=== PATIENT | male | born 1990 | race Caucasian/White ===

== ENCOUNTER 2018-01-13 18:15 | Inpatient (IN) | payer OTHER ==
[~2018-01-13] VITALS: Ht 172.7 cm; Wt 81.4 kg
[~2018-01-13 18:15] MED LIST: DOXYCYCLINE HY100 MG PO; NAPROSYN500 MG PO; NOHOMEMEDS; PERCOCET 5/31 TABLET PO
[2018-01-13 18:43] LABS: HEMATOCRIT 42.5 % (38.0-50.0); HEMOGLOBIN 14.7 G/DL (12.5-16.6); MCH 32.1 PG (29.0-34.0); MCHC 34.6 G/DL (30.0-36.0); MCV 92.8 FL (86-99); PLATELET COUNT 116 K/uL (156-360); RBC DIS.WIDTH-CV 13.4 % (11.8-14.6); RBC DIS.WIDTH-SD 45.4 % (39-53); RED BLOOD COUNT 4.58 M/uL (4.00-5.50); WHITE BLOOD COUNT 21.3 K/uL (4.1-10.2)
[2018-01-13 18:56] LABS: ALBUMIN 3.9 g/dL (3.2-4.8)
[2018-01-13 18:57] LABS: CHLORIDE 103 mEq/L (99-109); POTASSIUM 3.8 mEq/L (3.7-5.4); SODIUM 138 mEq/L (136-147)
[2018-01-13 18:59] LABS: GLUCOSE 90 mg/dL (70-99); TOTAL PROTEIN 6.9 g/dL (6.4-8.3)
[2018-01-13 19:01] LABS: TOTAL BILIRUBIN 0.5 mg/dL (0.0-1.0)
[2018-01-13 19:01] LABS: APPEARANCE SL.HAZY ((CLEAR)); BILIRUBIN NEGATIVE; BLOOD LARGE; COLOR YELLOW ((YELLOW)); GLUCOSE (STRIP) NEGATIVE; KETONES NEGATIVE; LEUKOCYTES NEGATIVE; NITRITE NEGATIVE; PROTEIN (STRIP) 30; SPECIFIC GRAVITY 1.021 (1.000-1.030); UROBILINOGEN 0.2 MG/DL (0.2-1.0)
[2018-01-13 19:02] LABS: ALKALINE PHOSPHATASE 90 IU/L (3-129)
[2018-01-13 19:03] LABS: CREATININE 1.4 mg/dL (0.6-1.3); GFR ESTIMATE (CALCULATED) > 59 mL/min/ (58.99-99999)
[2018-01-13 19:04] LABS: AST (GOT) 30 IU/L (2-34); UREA NITROGEN (BUN) 23 mg/dL (9-23)
[2018-01-13 19:06] LABS: ALT (GPT) 39 IU/L (3-49); LIPASE 13 U/L (1.0-51.0)
[2018-01-13 19:09] LABS: BACTERIA 1+ /HPF; EPITHELIAL CELLS NONE SEEN /HPF; HYALINE CASTS 0-5 /LPF; MUCUS TRACE /LPF; RED BLOOD CELLS 40-50 /HPF (0-5); UCUL ADDED? YES; WHITE BLOOD CELLS 20-30 /HPF (0-5)
[2018-01-13 21:54] LABS: SOURCE URINE
[2018-01-13] MEDS ORDERED: ADVIL,NUPRIN,M200 MG PO (21:58)
[2018-01-13 23:35] VITALS: BP 105/54
[2018-01-14 03:59] VITALS: BP 110/70
[2018-01-14 07:09] LABS: HEMATOCRIT 39.7 % (38.0-50.0); HEMOGLOBIN 13.5 G/DL (12.5-16.6); MCH 32.1 PG (29.0-34.0); MCV 94.5 FL (86-99); PLATELET COUNT 105 K/uL (156-360); RBC DIS.WIDTH-CV 13.5 % (11.8-14.6); WHITE BLOOD COUNT 11.6 K/uL (4.1-10.2)
[2018-01-14 07:37] VITALS: BP 113/67
[2018-01-14 07:40] LABS: ABS NEUTROPHIL COUNT 10.4; ANISOCYTOSIS 2+; ATYPICAL LYMPHOCYTE 0.9 %; BAND NEUTROPHILS 14.8 % (0-8.0); EOSINOPHIL ABS CT 0.1; EOSINOPHILS 0.8 % (0-5.0); LYMPHOCYTES 7.8 % (15.0-45.0); MICROCYTOSIS 2+; MONOCYTES 0.9 % (0-9.0); PLAT.SUFFICIENCY DECREASED; POIKILOCYTOSIS 3+; SEG.NEUTROPHILS 74.8 % (46.0-76.0); SPHEROCYTES 2+
[2018-01-14 08:20] LABS: CHLORIDE 104 MEQ/L (99-109); CREATININE 1.1 MG/DL (0.6-1.3); GFR ESTIMATE (CALCULATED) > 59 mL/min/ (58.99-99999); GLUCOSE 70 mg/dL (70-99); POTASSIUM 3.8 MEQ/L (3.7-5.4); SODIUM 140 MEQ/L (136-147); UREA NITROGEN (BUN) 21 mg/dL (9-23)
[2018-01-14 11:37] VITALS: BP 117/57
[2018-01-14 12:57] LABS: CHLAMYDIA TRACHOMATIS NEGATIVE; NEISSERIA GONORRHOEAE NEGATIVE
[2018-01-14 15:20] VITALS: BP 122/60
[2018-01-14 19:00] VITALS: BP 123/70
[2018-01-14 23:05] VITALS: BP 128/60
[2018-01-15 03:25] VITALS: BP 136/71
[2018-01-15 03:26] VITALS: BP 136/71
[2018-01-15 07:22] VITALS: BP 137/78
[2018-01-15 15:56] VITALS: BP 135/70
[2018-01-15 23:20] VITALS: BP 141/87
[2018-01-16 07:16] LABS: BASOPHIL (%) 0.3 % (0-1); EOSINOPHIL (%) 1.7 % (0-5); EOSINOPHIL COUNT 0.1 K/uL (0-0.3); HEMATOCRIT 42.5 % (38.0-50.0); IMMATURE GRANULOCYTE (%) 0.8 % (0.0-0.7); LYMPHOCYTE (%) 32.7 % (15-42); LYMPHOCYTE COUNT 1.9 K/uL (1.0-2.8); MCH 31.8 PG (29.0-34.0); MCHC 35.3 G/DL (30.0-36.0); MONOCYTE (%) 13.2 % (3-12); MONOCYTE COUNT 0.8 K/uL (0-0.8); NEUTROPHIL (%) 51.3 % (45-76); PLATELET COUNT 132 K/uL (156-360); RBC DIS.WIDTH-CV 12.6 % (11.8-14.6); RBC DIS.WIDTH-SD 41.7 % (39-53); RED BLOOD COUNT 4.72 M/uL (4.00-5.50); WHITE BLOOD COUNT 5.9 K/uL (4.1-10.2)
[2018-01-16 07:31] LABS: CHLORIDE 105 MEQ/L (99-109); CREATININE 1.1 MG/DL (0.6-1.3); GFR ESTIMATE (CALCULATED) > 59 mL/min/ (58.99-99999); POTASSIUM 3.9 MEQ/L (3.7-5.4); SODIUM 143 MEQ/L (136-147); UREA NITROGEN (BUN) 13 mg/dL (9-23)
[2018-01-16 07:34] LABS: GLUCOSE 93 mg/dL (70-99)
[2018-01-16 07:35] VITALS: BP 124/71
[2018-01-16] MEDS ORDERED: TAMSULOSIN HCL0.4 MG PO (09:20)
[2018-01-16] MEDS ORDERED: CEFDINIR300 MG PO (09:21)
[2018-01-16] MEDS ORDERED: TRAMADOL HCL50 MG PO (09:21)
== END 2018-01-16 10:26 | disposition home or self-care (01) | DRG 194 ==
LOC: EME 18:15 → EDOF 22:46 → 2EAST 22:46
PROVIDERS: Hospitalist; Internal Medicine; Physician Assistant
DX: J15.9 Unspecified bacterial pneumonia (principal); N10 Acute pyelonephritis; N20.0 Calculus of kidney; R79.1 Abnormal coagulation profile; F17.210 Nicotine dependence, cigarettes, uncomplicated; Z82.49 Family history of ischemic heart disease and other diseases of the circulatory system
CPT/HCPCS: 71275; 74176; 80048; 80053; 81003; 83605; 83690; 85025; 85027; 85379; 87040; 87086; 87491; 87591; 99281; 99285; J0456; J0696; J1650; J1885; J2270; J2405; J3010; J7030